=== PATIENT | male | born 1980 | race Caucasian/White ===

== ENCOUNTER → 2020-04-18 | Outpatient (CLI) | payer OTHER | LOC: RAD 12:48 | DX: N20.0 Calculus of kidney (principal) | CPT/HCPCS: 74018 ==

== ENCOUNTER 2021-07-22 08:33 | Inpatient (IN) | payer OTHER ==
[~2021-07-22] VITALS: Ht 177.8 cm; Wt 92.9 kg
[2021-07-22 09:49] LABS: HEMOGLOBIN 14.8 gm/dl (14.0-17.5); WHITE BLOOD COUNT 8.8 K/UL (4.5-11.0)
[2021-07-22 10:08] LABS: BUN/CREATININE RATIO 16 (0-10)
[2021-07-22] MEDS ORDERED: LOSARTAN POTAS100 MG PO (14:19)
[2021-07-22] MEDS ORDERED: CRESTOR10 MG PO (14:19)
[2021-07-22] MEDS ORDERED: MONTELUKAST SOD10 MG PO (14:19)
[2021-07-22] MEDS ORDERED: AMLODIPINE BESY10 MG PO (14:20)
[2021-07-23 04:08] LABS: HEMOGLOBIN 13.9 gm/dl (14.0-17.5); RED BLOOD COUNT 4.69 M/UL (4.20-5.50)
[2021-07-23 04:09] LABS: WHITE BLOOD COUNT 6.2 K/UL (4.5-11.0)
[2021-07-23 04:49] LABS: BUN/CREATININE RATIO 16 (0-10)
[2021-07-23] MEDS ORDERED: LEVOFLOXACIN500 MG PO (10:44)
[2021-07-23] MEDS ORDERED: ZOFRAN 4 MG TAB4 MG PO (10:57)
[2021-07-24 05:55] LABS: ADENOVIRUS F 40/41 Not Detected (Negative); ASTROVIRUS Not Detected (Negative); CAMPYLOBACTER Not Detected (Negative); CRYPTOSPORIDIUM Not Detected (Negative); E.COLI 0157 Not Detected (Negative); ENTAMOEBA HISTOLYTICA Not Detected (Negative); ENTEROAGGREGATIVE E.COLI (EAEC Not Detected (Negative); ENTEROPATHOGENIC E.COLI (EPEC) Not Detected (Negative); ENTEROTOXIGENIC E.COLI (ETEC) Not Detected (Negative); GIARDIA LAMBLIA Not Detected (Negative); NOROVIRUS GI/GII Not Detected (Negative); PLESIOMONAS SHIGELLOIDES Not Detected (Negative); ROTOVIRUS A Not Detected (Negative); SALMONELLA Not Detected (Negative); SAPOVIRUS Not Detected (Negative); SHIG/ENTEROINVAS.ECOLI (EIEC) Not Detected (Negative); SHIGA-LIK TOX.PRO.E.COLI (STEC Not Detected (Negative); VIBRIO Not Detected (Negative); VIBRIO CHOLERAE Not Detected (Negative); YERSINIA ENTEROCOLITICA Not Detected (Negative)
[2021-07-24 06:05] LABS: HEMOGLOBIN 12.2 gm/dl (14.0-17.5); WHITE BLOOD COUNT 5.2 K/UL (4.5-11.0)
[2021-07-24 06:12] LABS: RED BLOOD COUNT 4.15 M/UL (4.20-5.50)
[2021-07-24 06:27] LABS: BUN/CREATININE RATIO 22 (0-10)
[2021-07-24] MEDS ORDERED: PHENERGAN 12.12.5 M1 PO (09:21)
== END 2021-07-24 10:45 | disposition home or self-care (01) | DRG 390 ==
LOC: ER1 08:33 → CDU 13:24 → MED SURG 4 13:57
PROVIDERS: Physician Assistant; Physician Assistant Medical; ADMIT Internal Medicine
DX: K56.609 Unspecified intestinal obstruction, unspecified as to partial versus complete obstruction (principal); K56.7 Ileus, unspecified; Z87.442 Personal history of urinary calculi; Z20.822 Contact with and (suspected) exposure to COVID-19; I10 Essential (primary) hypertension; E78.5 Hyperlipidemia, unspecified; I88.0 Nonspecific mesenteric lymphadenitis; E78.00 Pure hypercholesterolemia, unspecified; N20.0 Calculus of kidney; Z79.899 Other long term (current) drug therapy; Z98.890 Other specified postprocedural states; Z88.8 Allergy status to other drugs, medicaments and biological substances; Z82.49 Family history of ischemic heart disease and other diseases of the circulatory system
CPT/HCPCS: 36415; 80048; 80053; 81001; 83605; 83735; 85025; 85027; 87040; 87507; 96374; 96375; 99285; J1885; J1956; J2270; J2405; J2550; J7030; U0002